=== PATIENT | male | born 1990 | race American Indian/Alaskan Native ===

== ENCOUNTER 2021-10-18 06:40 | Emergency (ER) | payer OTHER ==
[2021-10-18] MEDS ORDERED: Sodium Chloride 0.9% 10 ML Syringe FLUSH PRN (06:50)
[2021-10-18] MEDS ORDERED: Sodium Chloride 0.9% 2.5 ML Syringe FLUSH PRN (06:50)
[2021-10-18] MEDS ORDERED: Ondansetron 4 MG/2 ML SDV IVPUSH ONE (07:09)
[2021-10-18 08:04] LABS: CARBON DIOXIDE,CO2 29.6 mmol/L (21.0-32.0); POTASSIUM,K 3.6 mmol/L (3.5-5.1)
== END 2021-10-18 10:59 | disposition home or self-care (01) ==
LOC: MW.ED 06:40
DX: T40.601A Poisoning by unspecified narcotics, accidental (unintentional), initial encounter (principal); S20.211A Contusion of right front wall of thorax, initial encounter; R55 Syncope and collapse; W19.XXXA Unspecified fall, initial encounter
CPT/HCPCS: 36415; 71045; 80053; 84484; 85025; 93005; 96374; 99285; J2405; J3490; 93010; 99284